=== PATIENT | male | born 1995 | race Caucasian/White ===

== ENCOUNTER 2021-05-26 17:01 | Emergency (ER) | payer OTHER ==
[~2021-05-26] VITALS: Ht 172.7 cm; Wt 106.6 kg
[2021-05-26 17:49] VITALS: BP 125/88
[2021-05-26] MEDS ORDERED: KETOROLAC TROMETHAMINE INJ 60 MG/2 ML VIAL IM ONE ×2 (18:30→19:34)
--- NOTE | 2021-05-26 18:35 | NUR ---
WHEELED TO XRAY ROOM
[2021-05-26] MEDS ORDERED: NAPR-1009 PO (19:17)
== END 2021-05-26 20:10 | disposition home or self-care (01) ==
LOC: ER 17:06
DX: M53.3 Sacrococcygeal disorders, not elsewhere classified (principal); F17.210 Nicotine dependence, cigarettes, uncomplicated
CPT/HCPCS: 71045-TC; 72220-TC; J1885